=== PATIENT | male | born 1940 | race Caucasian/White ===

== ENCOUNTER 2021-11-09 09:01 | Inpatient (IN) | payer OTHER ==
[~2021-11-09] VITALS: Ht 182.9 cm; Wt 81.6 kg
[2021-11-09] MEDS ORDERED: LOTENSIN20 MG PO (09:23)
[2021-11-09] MEDS ORDERED: AMLODIPINE-OLM1 EAC2 PO (09:23)
[2021-11-09] MEDS ORDERED: ATORVASTATIN CA40 MG PO (09:23)
[2021-11-09] MEDS ORDERED: PANTOPRAZOLE SO40 M2 PO (09:24)
[2021-11-11] MEDS ORDERED: TOPROL XL25 M1 PO (09:56)
[2021-11-11] MEDS ORDERED: CLOPIDOGREL BIS75 MG PO (09:56)
== END 2021-11-11 11:29 | disposition home or self-care (01) | DRG 69 ==
LOC: ER 09:01 → MEDJ 21:06
PROVIDERS: ADMIT Internal Medicine; ATTEND Internal Medicine
PROC: B020ZZZ Computerized Tomography (CT Scan) of Brain (ICD-10-PCS; 2021-11-09)
PROC: B030ZZZ Magnetic Resonance Imaging (MRI) of Brain (ICD-10-PCS; 2021-11-09)
PROC: B24BZZZ Ultrasonography of Heart with Aorta (ICD-10-PCS; 2021-11-09)
PROC: B345ZZZ Ultrasonography of Bilateral Common Carotid Arteries (ICD-10-PCS; 2021-11-09)
PROC: 4A12X4Z Monitoring of Cardiac Electrical Activity, External Approach (ICD-10-PCS; principal; 2021-11-10)
DX: G45.9 Transient cerebral ischemic attack, unspecified (principal); I10 Essential (primary) hypertension; E78.00 Pure hypercholesterolemia, unspecified
CPT/HCPCS: 70551